=== PATIENT | female | born 1990 | race African-American/Black ===

== ENCOUNTER 2024-04-22 14:12 | Emergency (ER) | payer OTHER, SELFPAY ==
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
[2024-04-22 14:14] VITALS: BP 170/90; PULSE 99; RESP 18; TEMP 36.6; O2SAT 100
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
[2024-04-22 16:00] LABS: BEDSIDEPREGUCG Negative (Negative)
[2024-04-22 16:30] VITALS: BP 144/86; PULSE 97; RESP 15; O2SAT 99
== END 2024-04-22 17:10 | disposition home or self-care (01) ==
LOC: ANHED 17:06
PROVIDERS: Emergency Provider Physician Assistant
DX: S39.012A Strain of muscle, fascia and tendon of lower back, initial encounter (principal); M47.816 Spondylosis without myelopathy or radiculopathy, lumbar region; V43.52XA Car driver injured in collision with other type car in traffic accident, initial encounter
CPT/HCPCS: 72125; 72131; 81025; 99284